=== PATIENT | female | born 1980 | race African-American/Black ===

== ENCOUNTER 2020-10-20 19:40 | Emergency (ER) | payer SELFPAY ==
[~2020-10-20] VITALS: Ht 170.2 cm; Wt 63.6 kg
[2020-10-20 20:00] VITALS: Ht 170.2 cm; Wt 63.6 kg
[2020-10-20 21:28] LABS: UA SPECIFIC GRAVITY 1.025 (1.005-1.035); microscopic required? YES; urine erythrocyte 3+ (NEGATIVE)
[2020-10-20 23:51] LABS: BASOPHIL % 1.3 % (0-2); PLATELET COUNT 338 x10^3mcL (130-400); RED CELL DISTRIBUTION WIDTH 13.3 % (11.5-14.5)
[2020-10-21 00:03] LABS: CALCIUM 8.9 mg/dL (8.5-10.1); CARBON DIOXIDE 26.8 mmol/L (21-32); CHLORIDE SERUM 106 mmol/L (98-107); CREATININE SERUM 0.8 mg/dL (0.6-1.0); GFR1 > 60 mL/min; GLUCOSE SERUM 78 mg/dL (74-106); POTASSIUM SERUM 3.5 mmol/L (3.5-5.1); SODIUM SERUM 141 mmol/L (136-145)
[2020-10-21 00:09] LABS: ALBUMIN 3.4 g/dL (3.4-5.0); ALKALINE PHOSPHATASE 52 U/L (46-116); ALT/SGPT 23 U/L (14-59); AST/SGOT 19 U/L (15-37); BILIRUBIN TOTAL 0.1 mg/dL (0.20-1.00); CHOLESTEROL 157 mg/dL (<200); CHOLESTEROL/HDL RATIO 4.5; HDL CHOLESTEROL 35 mg/dL (40-60); LIPASE 142 IU/L (73-393); TOTAL PROTEIN, SERUM 6.9 g/dL (6.4-8.2); TRIGLYCERIDES 170 mg/dL (<150)
[2020-10-21 00:13] LABS: T3 TOTAL 1.1 ng/mL
[2020-10-21 00:24] VITALS: BP 115/67
[2020-10-21 01:43] LABS: FREE T4 0.79 ng/dL (0.76-1.46)
== END 2020-10-21 00:24 | disposition home or self-care (01) ==
LOC: ED 19:40
PROVIDERS: Specialist
DX: M54.6 Pain in thoracic spine (principal); N39.0 Urinary tract infection, site not specified
CPT/HCPCS: 72072; 83880; 84439; 87804

== ENCOUNTER 2020-11-23 14:10 | Emergency (ER) | payer MEDICAID, SELFPAY ==
[~2020-11-23] VITALS: Ht 170.2 cm; Wt 54.4 kg
[2020-11-23 14:11] VITALS: BP 107/77; Ht 170.2 cm; Wt 54.4 kg
== END 2020-11-23 19:11 | disposition home or self-care (01) ==
LOC: ED 14:10
DX: N39.0 Urinary tract infection, site not specified (principal); F17.210 Nicotine dependence, cigarettes, uncomplicated; Z20.828 Contact with and (suspected) exposure to other viral communicable diseases
CPT/HCPCS: 82962; U0003